=== PATIENT | male | born 1995 | race African-American/Black ===

== ENCOUNTER 2016-10-21 12:17 | Emergency (ER) | payer MEDICAID ==
[~2016-10-21] VITALS: Ht 182.9 cm; Wt 63.5 kg
[2016-10-21 12:22] VITALS: Ht 182.9 cm; Wt 63.5 kg
[2016-10-21] MEDS ORDERED: AZIT250T94 PO (13:27)
[2016-10-21] MEDS ORDERED: IBUP800T25 PO (13:27)
--- NOTE | 2016-10-21 13:36 | ERD ---
ER Documentation Chief Complaint Date/Time DATE: 10/21/16 TIME: 13:34 Chief Complaint flu like symptoms x 3 weeks HPI 21-year-old male who presents emergency room with a sore throat for approximately 3 weeks. He describes influenza-like symptoms including rhinorrhea, dry nonproductive cough, sore throat and generalized malaise for 3 weeks. Patient describes persistence of symptoms. No difficulty swallowing or drooling. No shortness of breath. ROS All systems reviewed and are negative except as per history of present illness. Medications Home Meds Active Scripts Azithromycin* (Zithromax*) 250 Mg Tablet, 250 MG PO .ZPACK DIRECTED, #6 TAB TAKE 500 MG (2 TABS) THE FIRST DAY THEN 250 MG (1 TAB) DAYS 2-5 Prov:FABIOLA BONE MD 10/21/16 Ibuprofen* (Motrin*) 800 Mg Tab, 800 MG PO Q6H Y for PAIN AND OR ELEVATED TEMP, #30 TAB Prov:FABIOLA BONE MD 10/21/16 Allergies Allergies: Coded Allergies: No Known Allergy (Unverified , 10/21/16) PMhx/Soc Medical and Surgical Hx: pt denies Medical Hx, pt denies Surgical Hx Hx Alcohol Use: No Hx Substance Use: Yes Hx Tobacco Use: Yes Smoking Status: Unknown if ever smoked FmHx Family History: No diabetes Physical Exam Vitals Vital Signs Date Time Temp Pulse Resp B/P Pulse Ox O2 Delivery O2 Flow Rate FiO2 10/21/16 12:22 97.3 97 20 134/73 100 Physical Exam General: Well developed, well nourished, no acute distress, appears to be intoxicated, smells strongly of marijuana Head: Normocephalic, atraumatic. Eyes: Pupils equally reactive, EOM intact ENT: Moist mucous membranes, posterior pharynx with slight erythema, no tonsillar swelling or exudates, uvula midline, tolerating secretions Neck: Supple, no lymphadenopathy Respiratory: Lungs clear bilaterally, no distress Cardiovascular: RRR, no murmurs, rubs, or gallops Abdominal: Soft, non-tender, non-distended, no peritoneal signs : Deferred MSK: No edema, no unilateral swelling, 5/5 strength Neurologic: Alert and oriented, moving all extremities, normal speech, no focal weakness, no cerebellar signs, appears to be high on marijuana Skin: No rash Psych: Normal mood Procedures/MDM The patient's clinical presentation is very consistent with an acute viral syndrome. However, given 3 weeks of symptoms initiation of azithromycin might be reasonable to rule out bacterial pharyngitis. No evidence of deep space infection. Additionally, the patient appears to be intoxicated with marijuana. He is ambulatory. The patient does not exhibit any clinical signs or symptoms concerning for serious bacterial infection or systemic illness. Based on history and clinical exam findings the patient does not appear to have evidence of pneumonia, strep pharyngitis, urinary tract infection, bacteremia, sepsis, or meningitis. For these reasons I do not believe it is necessary to obtain laboratory testing or diagnostic imaging. I believe it would be appropriate for symptom control, and close outpatient primary care follow-up. We discussed follow up with the patient's primary care doctor within 24 to 48 hours as needed. We also discussed return to the emergency room for worsening symptoms or worsening condition. Discharge Medications: Azithromycin, Motrin Departure Diagnosis: Primary Impression: Pharyngitis Pharyngitis/tonsillitis etiology: unspecified etiology Qualified Code: J02.9 - Pharyngitis, unspecified etiology Condition: Stable Patient Instructions: Pharyngitis, Viral Referrals: [facility] YOU HAVE RECEIVED A MEDICAL SCREENING EXAM AND THE RESULTS INDICATE THAT YOU DO NOT HAVE A CONDITION THAT REQUIRES URGENT TREATMENT IN THE EMERGENCY DEPARTMENT. FURTHER EVALUATION AND TREATMENT OF YOUR CONDITION CAN WAIT UNTIL YOU ARE SEEN IN YOUR DOCTORS OFFICE WITHIN THE NEXT 1-2 DAYS. IT IS YOUR RESPONSIBILITY TO MAKE AN APPOINTMENT FOR FOLOW-UP CARE. IF YOU HAVE A PRIMARY DOCTOR --you should call your primary doctor and schedule an appointment IF YOU DO NOT HAVE A PRIMARY DOCTOR YOU CAN CALL OUR PHYSICIAN REFERRAL HOTLINE AT IF YOU CAN NOT AFFORD TO SEE A PHYSICIAN YOU CAN CHOSE FROM THE FOLLOWING [facility] CLINICS [facility] [address] [facility] [address] [facility] [address] [facility] [address] [facility] [address] [facility] [facility] [address] [facility]. [facility] YOU HAVE RECEIVED A MEDICAL SCREENING EXAM AND THE RESULTS INDICATE THAT YOU DO NOT HAVE A CONDITION THAT REQUIRES URGENT TREATMENT IN THE EMERGENCY DEPARTMENT. FURTHER EVALUATION AND TREATMENT OF YOUR CONDITION CAN WAIT UNTIL YOU ARE SEEN IN YOUR DOCTORS OFFICE WITHIN THE NEXT 1-2 DAYS. IT IS YOUR RESPONSIBILITY TO MAKE AN APPOINTMENT FOR FOLOW-UP CARE. IF YOU HAVE A PRIMARY DOCTOR --you should call your primary doctor and schedule and appointment IF YOU DO NOT HAVE A PRIMARY DOCTOR YOU CAN CALL OUR PHYSICIAN REFERRAL HOTLINE AT . IF YOU CAN NOT AFFORD TO SEE A PHYSICIAN YOU CAN CHOSE FROM THE FOLLOWING [facility] INSTITUTIONS: [facility] [address] [place] [address] [facility] [address] [place] [address] [facility] [address] [place] [address] Additional Instructions: Call your primary care doctor TOMORROW for an appointment during the next 1 WEEK.Tell the confidential secretary that you were referred from this facility.See the doctor sooner or return here if your condition worsens before your appointment time. FABIOLA BONE MD Oct 21, 2016 13:36
== END 2016-10-21 13:47 | disposition home or self-care (01) ==
LOC: FTE 12:17
DX: J02.9 Acute pharyngitis, unspecified (principal); Z87.891 Personal history of nicotine dependence
CPT/HCPCS: 99283